=== PATIENT | female | born 1980 | race Asian ===

== ENCOUNTER → 2017-09-19 | Outpatient (CLI) | payer BC | LOC: SUN.DIA 08:54 | DX: O24.419 Gestational diabetes mellitus in pregnancy, unspecified control (principal); Z3A.31 31 weeks gestation of pregnancy; Z71.3 Dietary counseling and surveillance | CPT/HCPCS: G0108 ==

== ENCOUNTER → 2017-10-09 | Outpatient (CLI) | payer BC | LOC: SUN.DIA 11:06 | DX: O24.419 Gestational diabetes mellitus in pregnancy, unspecified control (principal); Z3A.34 34 weeks gestation of pregnancy; Z71.3 Dietary counseling and surveillance | CPT/HCPCS: G0108 ==

== ENCOUNTER → 2017-10-23 | Outpatient (CLI) | payer BC | LOC: SUN.DIA 15:45 | DX: O24.419 Gestational diabetes mellitus in pregnancy, unspecified control (principal); Z3A.36 36 weeks gestation of pregnancy; Z71.3 Dietary counseling and surveillance | CPT/HCPCS: G0108 ==

== ENCOUNTER 2017-11-15 02:43 | Inpatient (IN) | payer BC ==
[~2017-11-15] VITALS: Ht 157.5 cm; Wt 72.3 kg
[2017-11-15] VITALS (56 sets, daily range): BP systolic 90–148; BP diastolic 51–94; PULSE 75–126; TEMP 97.2–99.7
[2017-11-15] MEDS ORDERED: BENADRYL25 M2 PO (03:04)
[2017-11-15] MEDS ORDERED: PRENATAL1 TA7 PO (03:05)
[2017-11-15 04:09] LABS: BASO # 0.1 (0.0-0.2); BASO % 0.5 % (0.0-2.0); EOS # 0.1 (0.0-0.7); EOS % 0.8 % (0-4.0); GRAN # 6.6 (1.4-6.5); GRAN % 70.8 % (42.2-75.2); HEMATOCRIT 38.4 % (37.0-47.0); HEMOGLOBIN 13.3 g/dl (12.5-16.0); LYMPH # 1.8 (1.2-3.4); LYMPH % 19.6 % (20.0-51.0); MEAN CELL VOLUME 92 fl (80.0-100.0); MEAN CORPUSCULAR HEMOGLOBIN 32 pg (27.0-31.0); MEAN CORPUSCULAR HGB CONC 35 g/dl (33.0-37.0); MEAN PLATELET VOLUME 12.5 fl (7.4-10.4); MONO # 0.7 (0.1-0.6); PLATELET COUNT 174 K/mm3 (130-400); RED BLOOD COUNT 4.17 M/mm3 (4.10-5.30)
[2017-11-15 04:24] LABS: ALBUMIN 3.4 gm/dL (3.5-5.0); BILIRUBIN,TOTAL 0.2 mg/dL (0.0-1.0); CALCIUM 9.1 mg/dL (8.4-10.2); CREATININE, serum 0.53 mg/dL (0.52-1.25); POTASSIUM 4.2 mmol/L (3.4-5.0); TOTAL PROTEIN 7.1 gm/dL (6.4-8.2)
[2017-11-15 04:41] LABS: COLLECTION METHOD CLEAN CATCH
[2017-11-15 04:50] LABS: MUCOUS Present /lpf; PH 6 (5-8); SQUAMOUS EPITHELIAL 0-2 /hpf; URINE APPEARANCE Clear; URINE BACTERIA None Seen /hpf; URINE BILIRUBIN Negative (NEGATIVE); URINE BLOOD Negative (NEGATIVE); URINE COLOR Yellow; URINE GLUCOSE Negative (NEGATIVE); URINE KETONE Negative (NEGATIVE); URINE LEUKOCYTE ESTERASE Negative (NEGATIVE); URINE NITRATE Negative (NEGATIVE); URINE PROTEIN(semi-quant) 1+ (NEGATIVE); URINE UROBILINOGEN Negative (NEGATIVE); URINE WBC 0-2 /hpf
[2017-11-16 02:00] VITALS: BP 104/66; PULSE 70; TEMP 98.5
[2017-11-16 07:30] LABS: HEMATOCRIT 29.7 % (37.0-47.0); HEMOGLOBIN 10.1 g/dl (12.5-16.0)
[2017-11-16 08:45] VITALS: BP 107/68; PULSE 78; TEMP 98
[2017-11-16] MEDS ORDERED: IBU600 MG PO (10:24)
[2017-11-16 12:15] VITALS: BP 108/68; PULSE 68; TEMP 97.7
[2017-11-16 16:30] VITALS: BP 118/71; PULSE 81; TEMP 98.1
[2017-11-16 20:05] VITALS: BP 135/72; PULSE 109; TEMP 98.2
== END 2017-11-16 20:15 | disposition home or self-care (01) | DRG 775 ==
LOC: LDR 02:43 → OB 21:10
PROVIDERS: Obstetrics & Gynecology
PROC: 10D07Z6 Extraction of Products of Conception, Vacuum, Via Natural or Artificial Opening (ICD-10-PCS; principal; 2017-11-15)
PROC: 0KQM0ZZ Repair Perineum Muscle, Open Approach (ICD-10-PCS; 2017-11-15)
DX: O24.420 Gestational diabetes mellitus in childbirth, diet controlled (principal); Z3A.39 39 weeks gestation of pregnancy; Z37.0 Single live birth; O70.1 Second degree perineal laceration during delivery; O34.211 Maternal care for low transverse scar from previous cesarean delivery; O76 Abnormality in fetal heart rate and rhythm complicating labor and delivery; Z23 Encounter for immunization
CPT/HCPCS: J2590; J2795; J7120